=== PATIENT | male | born 1985 | race Caucasian/White ===

== ENCOUNTER → 2021-04-03 | Outpatient (CLI) | payer OTHER ==
[~2021-04-03] VITALS: Ht 190.5 cm; Wt 80.9 kg
[~2021-04-03] MED LIST: ADVIL200 M3 PO; FLECAINIDE ACET50 M1 PO; LORATIDINE 10 M10 M1 PO; PATADAY2.5 ML OPHTHALMIC; SUPER THERAVIT1 EACH PO
--- NOTE | ~2021-04-03 | P ---
[facility] [place] [address] PROCEDURE REPORT Name: SILVANO CLARK Room #: REG STEW [facility]#: [id number] Admission: 04/03/21 Attend Phys: Shamir Randall MD Discharge: Date of : 83 Report #: [id number] THIS REPORT FOR: cc: [facility] or PCP Shamir Randall MD ~ DATE OF SERVICE: 04/03/2021 PREOPERATIVE DIAGNOSIS: Supraventricular tachycardia. 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 PROCEDURES PERFORMED: 1. SVT ablation, 695[address]. 2. Left atrial pacing recording, CPT code 98681. 3. Program stimulation pacing after IV drug infusion, CPT code 56054. 4. 3D mapping, CPT code 81526. DESCRIPTION OF PROCEDURE: The patient was brought to the EP laboratory in fasting and sedated state, prepped and draped in a standard fashion, obtained access to the femoral veins placing an 8, 6 and 7-Afghan short sheaths using the modified Seldinger technique. Under fluoroscopy, 3 quadripolar catheters were placed at the HRA, His and RV positions and a decapolar catheter was placed in the coronary sinus for left atrial pacing and recording. At baseline, the patient was in sinus rhythm, sinus cycle length of 944 milliseconds, ME interval 140 milliseconds, QRS duration 94 milliseconds, QT interval 400 milliseconds, AH interval 83 milliseconds, and HV interval 37 milliseconds. Next, atrial burst pacing was performed and AV block was noted at 410 milliseconds. AV donta ERP was noted at 350 milliseconds at a [address] cycle length. VA block was noted at 640 milliseconds. VA conduction was both midline and decremental. Next, isoproterenol infusion was initiated at 2 mcg per minute. AV block was noted at 250 milliseconds. VA block was noted to be less than 270 milliseconds with conduction that was both midline and decremental. When I paced at ____ millisecond basic drive cycle length, the patient went into SVT, tachycardia cycle length of 280 milliseconds, septal VA time of 85 milliseconds. I was not able to entrain this. I could easily induce this SVT using a single atrial extrastimuli at 230 milliseconds at [address] cycle length, but I could never entrain this and it appeared that there was AV dissociation when I would try to entrain from the ventricle. This essentially ruled out an accessory pathway. Based on these findings, it was unclear if I had atypical AVNRT versus an atrial tachycardia. Therefore, I went in with the PentaRay catheter and performed an activation map of this tachycardia and the activation was earliest in the slow pathway region and placement of the PentaRay catheter at this site resulted in termination of the tachycardia. Therefore, this seemed to be most likely an atypical AV donta reentrant tachycardia, but I could not completely exclude atrial tachycardia from this same location. [facility] [address] [place] [address] PROCEDURE REPORT Name: SILVANO CLARK Room #: REG STEW [facility]#: [id number] Admission: 04/03/21 Attend Phys: Shamir Randall MD Discharge: Date of : 83 Report #: [id number] Therefore, I went with an ablation catheter via an SR0 sheath and to the slow pathway region and ablated in sinus rhythm. I performed a total of 5 lesions and the fourth lesion had a nice slow junctionals for approximately 60 seconds. Isoproterenol was reinitiated and AV block off isoproterenol was 400 milliseconds. Atrial ERP was noted at 220 milliseconds at [address] cycle length. On isoproterenol, AV block was 260. AV donta ERP was 190 at [address] cycle length and with aggressive atrial and ventricular pacing maneuvers, I could no longer induce his arrhythmia. As such, the procedure was concluded. The patient awoke neurologically and hemodynamically intact and all catheters and sheaths were pulled. Hemostasis obtained. CONCLUSION: 1. 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 2. Normal SA donta function. 3. Normal His-Purkinje function. 4. No other inducible arrhythmias on or off isoproterenol. By: [id number] Shamir Randall MD /nt
[2021-04-03 10:41] LABS: ABSOLUTE NEUTROPHILS 3.4 thou/uL (1.4-8.2); BASOPHILS 0.9 % (0.0-2.0); EOSINOPHILS 0.5 % (0.0-3.0); HEMATOCRIT 46.2 % (42.0-52.0); HEMOGLOBIN 15.5 gm/dL (14.0-18.0); LYMPHOCYTES 28.8 % (24.0-44.0); MCH 31.3 pg (26.0-34.0); MCHC 33.5 g/dL (28.0-37.0); MCV 93.3 fL (80.0-100.0); MONOCYTES 9.2 % (1.0-8.0); PLATELET COUNT 181 thou/uL (150-400); POLYS 60.6 % (36.0-66.0); RBC 4.95 mil/uL (4.50-6.00); RDW 12.5 % (10.5-14.5); WBC 5.6 thou/uL (4.0-11.0)
[2021-04-03 10:49] LABS: CALCIUM 9.1 mg/dL (8.5-10.1); CREATININE 1.1 mg/dL (0.7-1.3); POTASSIUM 4.5 mmol/L (3.5-5.1)
[2021-04-03 10:52] VITALS: BP 108/67
[2021-04-03 10:55] LABS: ALBUMIN 4.1 g/dL (3.4-5.0); TOTAL BILIRUBIN 1.4 mg/dL (0.2-1.0); TOTAL PROTEIN 6.7 g/dL (6.4-8.2)
[2021-04-03 11:02] LABS: APTT 27.5 Seconds (24.5-32.8); INR 1.02; PROTIME 11.1 Seconds (10.5-12.1)
== END | disposition home or self-care (01) ==
LOC: CATH 09:26
PROVIDERS: ATTEND Internal Medicine Cardiovascular Disease
DX: I47.1 Supraventricular tachycardia (principal); K21.9 Gastro-esophageal reflux disease without esophagitis; Z98.890 Other specified postprocedural states; Z79.899 Other long term (current) drug therapy; Z87.891 Personal history of nicotine dependence; Z20.822 Contact with and (suspected) exposure to COVID-19
CPT/HCPCS: 62110; 62900; 70005